=== PATIENT | female | born 1960 | race Caucasian/White ===

== ENCOUNTER 2020-06-23 15:30 | Outpatient (RCR) | payer OTHER, SELFPAY ==
--- NOTE | 2020-04-11 15:35 | PTOPEVAL ---
PHYSICAL THERAPY EVALUATION AND PLAN OF TREATMENT 04-11-2020 Thank you for referring Becky King to [facility].? She is scheduled to be seen for therapy? 1-2 x/week for 4 weeks. Please review, sign, date and return this plan of care OSMANY. I agree with and certify that the following plan of care is medically necessary. Referring Physician Date Attending Provider: Dr. Jim Jackson Ordering provider: RICHIE Blackman PT Outpatient Evaluation Document 04/11/20 14:32 THERESA (Rec: 04/11/20 15:17 THERESA [id number]) Therapy Assessment Status Assessment Status Assessment Status Evaluation Outpatient Past Medical History Past Medical History Source of Past Medical History Patient Neurological History Hx Migraine Yes: headaches every other day - all day to 1 hour duration Cardiovascular History Hx Hypertension Yes: med control Respiratory History Hx Sleep Apnea Yes: CPAP machine Gastrointestinal History Hx Gastroesophageal Reflux Disease Yes: meds Hx Other Gastrointestinal Disorders Yes: constipation- take meds Genitourinary History Hx Genitourinary Disorders No Significant History Musculoskeletal History Hx Arthritis Yes: B hands, R knee pain; Hx Orthopedic Surgery Yes: L femur ~ 2 yr ago- ORIF; Hx Other Musculoskeletal Disorders Yes: R wrist fracture- casted; Endocrine History Hx Diabetes Yes: working on control-- working with dr on meds HEENT History Hx Other HEENT Disorders Yes: hearing problems- ears hurt; B hearing aides Psychosocial History Hx Other Psychiatric Disorders Yes: have alot of mental health issues & stress Evaluation Information Problem Diagnosis L trochanteric bursitis Onset March 05, 2020 Subjective Information in March, fell down the Query Text:As Reported By Patient/ stairs, into her home, hand Family rail is broken-landed on L buttock; went to urgent care after fall; saw ortho- was told lots of arthritis, hip will always give you troubles ; it has gotten worse; have been inactive due to pandemic and are weaker; have not been doing exercises for leg/hip; Previous Treatments Previous Treatments For This Problem had PT after L hip ORIF; not had any recent therapy Prior Level of Function Activity Level (Last 3 Months) Occupation not working--disabled Activity of Daily Living Ability Independent Indoor/Home Mobility Independent Community Mobilit
--- NOTE | 2020-05-08 15:16 | PTOPEVAL ---
PHYSICAL THERAPY RE-EVALUATION AND UPDATED PLAN OF CARE 05-08-2020 Refer to the clinical summary below for her status compared to the initial evaluation. She is scheduled to continue PT 2x/week for 3 weeks. Thank you for referring Becky King to [facility].? Please review, sign, date and return this updated plan of care [facility]. I agree with and certify that the following plan of care is medically necessary. Referring Physician Date Attending Provider: Dr. Jim Jackson ordering provider: RICHIE Blackman *PT Outpatient Re-Evaluation Document 05/08/20 14:32 THERESA (Rec: 05/08/20 15:08 THERESA [id number]) Subjective Information Becky reports: at home, fell Query Text:As Reported By Patient/ when screen door hit her ankle Family - hit her head and cut leg open; and twisted her hip and ankle-- more pain in hip; having a bad day- too much going on today, am off kilter today; problems on stairs; when shopping use the motorized cart to go through store; compared to the start of PT feels like doing better- pain is less and want to continue therapy ; not sure when see dr again; WOMAC self assessment score is 71% limitation in activity; Pain Assessment Timing of Pain Assessment Timing of Pain Assessment Assessment Pain Scale Pain Scale Used Numeric (1 - 10) Self Report Pain Assessment Left Hip(s) Reported Pain Level 7 Pain Description Aching,Dull,Sharp Pain Frequency Chronic,Continuous Other Pain Description someone hit her in hip; Lowest Pain Intensity 4 Greatest Pain Intensity 9 Pain Aggravating Factors Exercise/Activity,Stair Climbing,Walking,Weight Bearing/Standing Other Pain Aggravating Factors getting on/off floor Pain Score Pain Score 7: Self Report Interventions Used Interventions Used By Clinicians Education,Exercise Pain Relief Interventions Used By Heat,Inactivity/Rest, Patient Medication,Sitting Other Alleviating Interventions taking ibuprofen- not really help; moving hip; heat; standing- incr WB on R Lower Extremity Range of Motion General Lower Extremity Range of Motion Gross Lower Extremity Range of Motion supine: L hip flexion 90'; ER Comments 15'; pain with both motions Lower Extremity Muscle Strength Testing
--- NOTE | 2020-05-26 16:09 | PTOPEVAL ---
PHYSICAL THERAPY RE-EVALUATION AND UPDATED PLAN OF CARE 05-26-20 Refer to the clinical summary below for her status, compared to the last reevaluation. Thank you for referring Becky King to [facility].? She is scheduled to be seen for therapy? 1 x/week for 4 weeks. Please review, sign, date and return this updated plan of care OSMANY. I agree with and certify that the following plan of care is medically necessary. Referring Physician Date Attending Provider: Dr. Jim Jackson ordering provider: RICHIE Blackman Document 05/26/20 15:25 THERESA (Rec: 05/26/20 16:09 THERESA [id number]) Assessment Status Reevaluation Subjective Information Becky reports: talked with dr Iraheta Text:As Reported By Patient/ today on phone, to return Family there in few weeks; been doing leg exercises; using cane for walking, in home do not use it; have not had any falls; wants to continue PT, feels like it is helping and she is doing better; Pain Assessment Timing of Pain Assessment Timing of Pain Assessment Assessment Pain Scale Pain Scale Used Numeric (1 - 10) Self Report Pain Assessment Left Hip(s) Reported Pain Level 5 Pain Description Aching,Dull,Sharp,Tender on Palpation Pain Frequency Chronic,Continuous Lowest Pain Intensity 4 Greatest Pain Intensity 7 Other Pain Aggravating Factors crawl on floor to do ermias; weather; walking, stairs Pain Behaviors Anxious,Grimacing,Guarding Pain Score Pain Score 5: Self Report Additional Pain Score Comments self assessment with WOMAC 63 % limitation Interventions Used Interventions Used By Clinicians Education,Exercise Pain Relief Interventions Used By Medication Patient Other Alleviating Interventions ibuprofen, move leg; Lower Extremity Range of Motion General Lower Extremity Range of Motion Gross Lower Extremity Range of Motion supine: L hip flexion 90', ER Comments 20'-both pain increase Lower Extremity Muscle Strength Testing General Lower Extremity Strength Gross Lower Extremity Strength functional strength: single leg standing R 4/L 3 sec- unstable standing L with 1 UE hold: hip abduction x 15 reps; knee flexion x 15 reps; supine: L SLR x 15 reps; hip abduction x 15 reps; Posture Posture Standing Position Posture Evaluation View Posterior Head/C-Spine Posture Forward Head Thora
--- NOTE | 2020-06-23 15:54 | PTOPEVAL ---
PHYSICAL THERAPY DISCHARGE 06-23-20 Refer to the clinical summary below for her status today, compared to the last reevaluation report. The goals were partially achieved. Discharge PT services, with Becky to continue her home exercise program. Thank you for referring Becky King to [facility].? Please review, sign, date and return this discharge OSMANY. I agree with and certify that the following plan of care is medically necessary. Referring Physician Date Attending Provider: Dr. Jim Jackson Referring Provider: RICHIE Blackman Document 06/23/20 15:15 THERESA (Rec: 06/23/20 15:54 THERESA [id number]) Assessment Status Discharge Subjective Information Becky reports: fell on the Query Text:As Reported By Patient/ ice/snow, landed on back/butt; Family hip is better, have been doing exercises at home as can ; not going to [place] anymore , next week am going to see the dr at [facility], that did the hip surgery; feels like need PT to be able to do exercises; Discussed with her to continue exercises at home- states cannot do the exercises on her bed at home, due to it is not supportive; problems on stairs, problems getting up and down off floor; not able to do her usual dancing and activities due to COVID restrictions, need to come here for equipment and exercises; Pain Assessment Timing of Pain Assessment Timing of Pain Assessment Assessment Pain Scale Pain Scale Used Numeric (1 - 10) Self Report Pain Assessment Left Hip(s) Reported Pain Level 5 Pain Description Dull,Sharp,Stabbing Pain Frequency Chronic,Continuous Other Pain Description lateral hip and thigh Lowest Pain Intensity 3 Greatest Pain Intensity 7 Pain Aggravating Factors Stair Climbing,Walking Pain Behaviors Anxious,Grimacing,Guarding Pain Score Pain Score 5: Self Report Additional Pain Score Comments WOMAC self assessment functional score 48% limitation in activity level Interventions Used Interventions Used By Clinicians Exercise Pain Relief Interventions Used By Heat,Inactivity/Rest, Patient Medication Other Alleviating Interventions take
== END 2020-06-26 08:05 | disposition home or self-care (01) ==
LOC: ANHPT 15:30
DX: M70.62 Trochanteric bursitis, left hip (principal)
CPT/HCPCS: 97035; 97110; 97161

== ENCOUNTER 2020-09-15 15:00 | Outpatient (RCR) | payer OTHER, SELFPAY ==
--- NOTE | 2020-07-20 15:09 | OTOPEVAL ---
OCCUPATIONAL THERAPY INITIAL EVALUATION Thank you for referring Becky King to [facility].? The patient is scheduled to be seen for therapy? 1-2x/week for 4 weeks. Would prefer 2x/week for optimal treatment, however patient's schedule is limited and may only be seen 1x/week. Please review, sign, date and return this plan of care OSMANY. I agree with and certify that the following plan of care is medically necessary. Referring Physician Date Referring Provider: Maxx Mckeon MD *OT Outpatient Evaluation Therapy Assessment Status Assessment Status Assessment Status Evaluation Outpatient Past Medical History Past Medical History Source of Past Medical History Recalled from Previous Visit, Confirmed with Patient/Family Neurological History Hx Cerebrovascular Accident (CVA) Yes Hx Migraine Yes: headaches every other day - all day to 1 hour duration Cardiovascular History Hx Hypercholesterolemia Yes Hx Hypertension Yes: med control Respiratory History Hx Sleep Apnea Yes: CPAP machine Gastrointestinal History Hx Gastroesophageal Reflux Disease Yes: meds Hx Other Gastrointestinal Disorders Yes: constipation- take meds Genitourinary History Hx Genitourinary Disorders No Significant History Musculoskeletal History Hx Arthritis Yes: B hands, R knee pain; Hx Orthopedic Surgery Yes: L femur ~ 2 yr ago- ORIF; Hx Other Musculoskeletal Disorders Yes: R wrist fracture- casted; Endocrine History Hx Diabetes Yes: working on control-- working with dr on meds HEENT History Hx Other HEENT Disorders Yes: hearing problems- ears hurt; B hearing aides Psychosocial History Hx Depression Yes Evaluation Information Problem Diagnosis Right 1st dorsal compartment stenosing tenosynovitis Subjective Information Patient reports having this Query Text:As Reported By Patient/ hand/wrist pain for the past Family few years , on and off . Patient states she has been having severe pain with ADLs, cooking, lifting, stirring, and carrying. She states the pain is so severe it stops her from being able to sleep. Diagnostic Tests X-Rays For This Problem No MRI For This Problem No Other Tests For This Problem No Previous Treatments Previous Treatments For This Problem N/A Prior Level of Function Activity Level (Last 3 Months) Hand Dominance Right Activity of Daily Living Ability Independent Indoor/Home Mobility Independent Community Mobility Independent Functional Cognition (Planning, Shopping In
--- NOTE | 2020-08-18 15:28 | OTOPEVAL ---
OCCUPATIONAL THERAPY RE-EVALUATION REPORT 08/18/20 Patient's re-evaluation today demonstrates reduction in pain in the 1st dorsal compartment. She continues to have moderate pain on a regular basis with everyday use and will benefit from continued sessions for use of modalities for pain and inflammation reduction, manual therapy, progression of exercises, and splint weaning schedule. Thank you for referring Becky King to [facility].? The patient is scheduled to be seen for therapy? 1x/week for 4 weeks. Please review, sign, date and return this plan of care OSMANY. I agree with and certify that the following plan of care is medically necessary. Referring Physician Date Referring Provider: Maxx Mckeon MD *OT Outpatient Evaluation Start: 07/20/20 14:04 Evaluation Information Problem Diagnosis Right 1st dorsal compartment stenosing tenosynovitis Additional Evaluation Detail Patient has participated in 6 OT sessions since 07/21/20. Patient has been wearing a forearm based thumb spica x3 weeks. Sessions have been focused on using modalities for inflammation reduction and manual therapy. Subjective Information Patient reports improved Query Text:As Reported By Patient/ ability to use the right hand Family with slightly less pain than she was having a month ago. She does report that her hand/ wrist pain no longer stop her from being able to sleep. Her pain with using the right hand when lifting and carrying has improved from severe to moderate Pain Assessment Timing of Pain Assessment Timing of Pain Assessment Pre-Treatment Pain Scale Pain Scale Used Numeric (1 - 10) Self Report Pain Assessment Right Wrist(s) Reported Pain Level 6 Pain Description Aching Lowest Pain Intensity 3 Greatest Pain Intensity 8 Pain Score Pain Score 6: Self Report Additional Pain Score Comments Patient reports no instances of her pain getting to 10/10 like it was on the initial evaluation. Interventions Used Interventions Used By Clinicians Education,Heat Upper Extremity Range of Motion Wrist Range of Motion Right Wrist Flexion - Active 30 Wrist Extension - Active 50 Wrist Radial Deviation - Active 20 Wrist Ulnar Deviation - Active 15 Wrist Range of Motion Comments Flexion improved from 25* Exten
--- NOTE | 2020-09-15 15:40 | OTOPEVAL ---
OCCUPATIONAL THERAPY RE-EVALUATION AND D/C NOTE 09/15/20 Patient presents for 2nd OT re-evaluation since beginning OT 8 weeks ago. At this time, she reports that her her pain has decreased from severe to mild and she is now able to complete ROM without increased pain. She also had a negative Abigail's test today. At this time she is independent with ROM HEP and understands to return to splinting/resting and icing if the pain returns in the future. No further skilled OT indicated at this time. Thank you for referring Becky King to [facility]. Please review, sign, date and return this D/C Note OSMANY. I agree with and certify that the following plan of care is medically necessary. Referring Physician Date Referring Provider: Maxx Mckeon MD *OT Outpatient Re-Evaluation Re-Evaluation Information Problem Diagnosis Right 1st dorsal compartment stenosing tenosynovitis Additional Evaluation Detail Patient has participated in 9 OT sessions since 07/21/20. Patient has been wearing a forearm based thumb spica x6 weeks with questionable compliance outside of therapy. Sessions have been focused on using modalities for inflammation reduction and manual therapy. Subjective Information Patient reports improved Query Text:As Reported By Patient/ ability to use the right hand Family with less pain for ADLs, carrying, driving, and crafting. She does report that her hand/wrist pain no longer stop her from being able to sleep. Her pain with using the right hand when lifting and carrying has improved from moderate to mild . QuickDash score at eval: 62.5 QuickDash score today: 25.0 Pain Assessment Timing of Pain Assessment Timing of Pain Assessment Re-assessment Pain Scale Pain Scale Used Numeric (1 - 10) Self Report Pain Assessment Right Wrist(s) Reported Pain Level 3 Pain Description Aching Lowest Pain Intensity 2 Greatest Pain Intensity 6 Pain Score Pain Score 3: Self Report Interventions Used Interventions Used By Clinicians Education Upper Extremity Range of Motion Wrist Range of Motion Right Wrist Flexion - Active 30 Wrist Extension - Active 60 Wrist Radial Deviation - Active 20 Wrist Ulnar Deviation - Active 15 Wrist Range of Motion Comments Flexion improved from 25* Extensi
== END 2020-09-18 10:35 | disposition home or self-care (01) ==
LOC: ANHOT 15:00
PROVIDERS: Visit Provider Plastic Surgery
DX: M65.4 Radial styloid tenosynovitis [de Quervain] (principal)
CPT/HCPCS: 97035; 97110; 97140; 97165; L3808

== ENCOUNTER 2021-05-03 15:30 | Outpatient (RCR) | payer OTHER, SELFPAY ==
--- NOTE | 2021-02-12 15:34 | PTOPEVAL ---
PHYSICAL THERAPY EVALUATION AND PLAN OF CARE 02-12-21 Thank you for referring Becky King to [facility].? Becky is scheduled to be seen for therapy? 2 x/week for 4 weeks. Please review, sign, date and return this plan of care OSMANY. I agree with and certify that the following plan of care is medically necessary. Referring Physician Date Attending Provider: GEOVANNY JEFF *PT Outpatient Evaluation Start: 02/12/21 14:49 Assessment Status Evaluation Outpatient Past Medical History Past Medical History Source of Past Medical History Recalled from Previous Visit, Confirmed with Patient/Family Neurological History Hx Cerebrovascular Accident (CVA) Yes Hx Migraine Yes: headaches every other day - all day to 1 hour duration Cardiovascular History Hx Hypercholesterolemia Yes Hx Hypertension Yes: med control Respiratory History Hx Sleep Apnea Yes: CPAP machine Gastrointestinal History Hx Gastroesophageal Reflux Disease Yes: meds Hx Other Gastrointestinal Disorders Yes: constipation- take meds Genitourinary History Hx Genitourinary Disorders No Significant History Musculoskeletal History Hx Arthritis Yes: B hands, R knee pain; Hx Orthopedic Surgery Yes: L femur ~ 2 yr ago- ORIF; Hx Other Musculoskeletal Disorders Yes: R wrist fracture- immobilized/non surgical Endocrine History Hx Diabetes Yes: on insulin; HEENT History Hx Other HEENT Disorders Yes: hearing problems- ears hurt; 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 Psychosocial History Hx Depression Yes Evaluation Information Problem Diagnosis L hip pain; trochanteric bursitis Onset December 2020 Subjective Information dance season ended and not as Query Text:As Reported By Patient/ active; not doing any Family exercises at home for her leg/ hip; having so many problems, not able to do exercises; Prior Level of Function Activity Level (Last 3 Months) Activity of Daily Living Ability Independent Indoor/Home Mobility Independent Community Mobility Independent Stairs Ability Independent Functional Cognition (Planning, Shopping Independent , Taking Medications) Cooking Yes Cleaning Yes Laundry Yes Shopping Yes Driving Yes Home Setting Home Type House Living Situation Alone Mobility Assistive Devices (Used Last 3 None,Cane
--- NOTE | 2021-03-14 16:16 | PTOPEVAL ---
PHYSICAL THERAPY DISCHARGE 03-14-21 Refer to the clinical summary below for her status today, compared to the initial evaluation. Ms. King has made some improvements, but additional skilled therapy is not justified. Becky has been instructed on a home exercise program and is to continue with it. She reports she wants to continue therapy to return to dancing. Thank you for referring Becky King to [facility].? Please review, sign, date and return this Discharge report OSMANY. I agree with and certify that the following plan of care is medically necessary. Referring Physician Date Attending Provider: GEOVANNY JEFF Document 03/14/21 15:10 THERESA (Rec: 03/14/21 16:14 THERESA [id number]) Assessment Status Discharge Subjective Information Becky reports: doing better Query Text:As Reported By Patient/ since coming for therapy- hip Family better, less pain, easier to walk; have had horrible night and did not sleep last night; doing exercises at home; want to dance again; wants to continue with therapy, hope I improved enough to keep coming for therapy; Pain Assessment Timing of Pain Assessment Timing of Pain Assessment Assessment Pain Scale Pain Scale Used Numeric (1 - 10) Self Report Pain Assessment Left Hip(s) Reported Pain Level 6 Pain Description Aching,Dull,Sharp,Soreness, Tender on Palpation,Tightness Pain Frequency Chronic,Continuous Other Pain Description stiff--point lateral hip and thigh Lowest Pain Intensity 5 Greatest Pain Intensity 7 Pain Aggravating Factors Sitting,Walking,Weight Bearing /Standing Other Pain Aggravating Factors sit tolerance reported 15 min; bending down to floor; Pain Behaviors Anxious,Grimacing,Guarding Pain Score Pain Score 6: Self Report Additional Pain Score Comments knee was hurting, is doing OK today; WOMAC- self assessment functional score 71% limitation in activity Interventions Used Interventions Used By Clinicians Education,Exercise Pain Relief Interventions Used By Inactivity/Rest,Medication, Patient Sitting Other Alleviating Interventions ibuprofen Lower Extremity Range of Motion General Lower Extremity Range of Motion Gross Lower Extremity Range of Motion side lying L hip extension to Comments (-5') and knee flexion to 90' Lower Extremity Muscle Strength Testing General Lower Extre
--- NOTE | 2021-03-16 14:57 | OTOPEVAL ---
OCCUPATIONAL THERAPY INITIAL EVALUATION REPORT 03/16/21 Thank you for referring Becky King to [facility].? The patient is scheduled to be seen for therapy? 1-2x/week for 5 weeks. Please review, sign, date and return this plan of care OSMANY. I agree with and certify that the following plan of care is medically necessary. Referring Physician Date Referring Provider: Dr. Ryan Mckeon *OT Outpatient Evaluation Start: 03/16/21 13:46 Therapy Assessment Status Assessment Status Assessment Status Evaluation Outpatient Past Medical History Past Medical History Source of Past Medical History Recalled from Previous Visit, Confirmed with Patient/Family Neurological History Hx Cerebrovascular Accident (CVA) Yes Hx Migraine Yes: headaches every other day - all day to 1 hour duration Cardiovascular History Hx Hypercholesterolemia Yes Hx Hypertension Yes: med control Respiratory History Hx Sleep Apnea Yes: CPAP machine Gastrointestinal History Hx Gastroesophageal Reflux Disease Yes: meds Hx Other Gastrointestinal Disorders Yes: constipation- take meds Genitourinary History Hx Genitourinary Disorders No Significant History Musculoskeletal History Hx Arthritis Yes: B hands, R knee pain; Hx Orthopedic Surgery Yes: L femur ~ 2 yr ago- ORIF; Hx Other Musculoskeletal Disorders Yes: R wrist fracture- immobilized/non surgical Endocrine History Hx Diabetes Yes: on insulin; HEENT History Hx Other HEENT Disorders Yes: hearing problems- ears hurt; 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 She Family states that she cannot use her right hand to start her car, open a door, use a screwdriver , or open a jar or a soda bottle. She takes ibuprofen for the pain. Prior Level of Function Activity Level (Last 3 Months) Hand Dominance Right Activity of Daily Living Ability Independent Driving Yes Pain Assessment Timing of Pain Assessment Timing of Pain Assessment Assessment Pain Scale Pain Scale Used Numeric (1 - 10) Self Report Pain Assessment Right Hand(s) Reported Pain Level 9 Pain Description Aching,Burning,Sharp Pain Frequency Continuous Lowest Pain Intensity 3
--- NOTE | 2021-03-23 14:05 | PCOTNOTE ---
Patient did not show up for scheduled appointment this date. Called patient who states she forgot about her appointment today.
--- NOTE | 2021-04-20 15:39 | OTOPEVAL ---
OCCUPATIONAL THERAPY RE-EVALUATION REPORT 04/20/21 Becky has been seen for 6 outpatient treatment sessions for right 1st dorsal compartment syndrome as well as the recent development of a trigger thumb. A forearm based thumb spica with the thumb IP included was fabricated ~3.5 weeks ago. Questionable compliance with the splint, however she does have the splint on when she arrives each therapy session. Improvements have been noted since the start of care: less pain with wrist active ROM, serial opposition, and thumb flexion. She unfortunately continues to have signs and symptoms of a trigger thumb, which is the biggest limitation at this time. She may benefit from an injection at her next visit with . Continued skilled OT indicated for continued use of modalities for inflammation reduction, HEP progression, ROM, manual therapy, and progression to strengthening as pain allows to facilitate optimal functional use of the right hand. Thank you for referring Becky King to [facility].? The patient is scheduled to be seen for therapy? 1x/week for 5 weeks. Please review, sign, date and return this plan of care OSMANY. I agree with and certify that the following plan of care is medically necessary. Referring Physician Date Referring Provider: Dr. Ryan Mckeon *OT Outpatient Evaluation Start: 03/16/21 13:46 Evaluation Information Problem Diagnosis Right 1st dorsal compartment syndrome Subjective Information Patient reports reduction in Query Text:As Reported By Patient/ pain in the right hand. She Family states she can now use the right hand with less pain to start her car, opening a door, and open a jar or soda bottle . She states, it's getting better, but not there yet . Pain Assessment Timing of Pain Assessment Timing of Pain Assessment Assessment Pain Scale Pain Scale Used Numeric (1 - 10) Self Report Pain Assessment Right Hand(s) Reported Pain Level 4 Pain Description Aching,Soreness Pain Score Pain Score 4: Self Report Interventions Used Interventions Used By Clinicians Exercise,Rest Upper Extremity Range of Motion Wrist Range of Motion Right Wrist Flexion - Active 30 Wrist Extension - Active 55 Wrist Radial Deviation - Active 15 Wrist Ulnar Deviation - Active 25 Wrist Range of Motion Comments a little bit of pain with wrist ROM Flexion improved from 15* Extension improved from 20* RD improved from 5* UD improved from 10* Thumb Range of Motion Right Thumb Range of Motion Comments She is now able to complete serial opposition. At the start of care, she was unable to touch the index finger
--- NOTE | 2021-05-14 08:39 | PCOTNOTE ---
This treatment is being continued on visit number [id number]. Please see documentation on both accounts to view progress. Completed interventions, outcomes, and problems have been marked as Inactive to facilitate the copying of the Care plan routine for recurring accounts.
== END 2021-05-10 11:38 | disposition home or self-care (01) ==
LOC: ANHOT 15:30
PROVIDERS: Visit Provider Physician Assistant
DX: M70.62 Trochanteric bursitis, left hip (principal); M25.552 Pain in left hip
CPT/HCPCS: 97035; 97110; 97140; 97161; 97165; L3806; L3933

== ENCOUNTER 2021-07-19 15:30 | Outpatient (RCR) | payer OTHER, SELFPAY ==
--- NOTE | 2021-05-14 08:38 | PCOTNOTE ---
The treatment documented on this account is a continuation of the treatment documented on visit number [id number]. Please see documentation on both accounts to view progress. The Plan of Care has been transitioned and updated within the new V#. I have addressed and agree with the discipline specific Problems, Interventions, and Goals for the current certification period. Completed interventions, outcomes, and problems have been marked as Inactive to facilitate the copying of the Care plan routine for recurring accounts.
--- NOTE | 2021-05-22 15:51 | OTOPEVAL ---
OCCUPATIONAL THERAPY RE-EVALUATION AND POC UPDATE 05/22/21 Today was Becky's 10th outpatient OT session for right 1st dorsal compartment syndrome, right trigger thumb, and now being treated for left trigger finger of the ring finger. Splinting has been our main treatment to immobilize and rest these structures. She continues to make progress with reduced pain and improved functional use, however she continues to have mild pain with inconsistent triggering of the thumb. Abigail's on the right is now negative. Today a splint was fabricated for the left ring finger to reduce triggering and reduce pain. She is unable to make a complete fist with the left hand at this time. Continued skilled OT indicated for continued use of modalities for inflammation reduction, HEP progression, ROM, manual therapy, and progression to strengthening as pain allows to facilitate optimal functional use of bilateral hands. Thank you for referring Becky King to [facility].? The patient is scheduled to be seen for continued occupational therapy? 1x/week for 4 weeks. Please review, sign, date and return this plan of care OSMANY. I agree with and certify that the following plan of care is medically necessary. Referring Physician Date Referring Provider: Dr. Ryan Mckeon *OT Outpatient Evaluation Start: 05/18/21 14:13 Evaluation Information Problem Diagnosis Right 1st dorsal compartment syndrome Onset December 2020 Additional Evaluation Detail Patient is also being treated for right trigger thumb. She began having a trigger finger in the left ring finger and has new orders to eval and treat that today. Subjective Information Patient reports reduced pain Query Text:As Reported By Patient/ in the right hand. She states Family her thumb intermittently gets stuck noting times of no triggering. She reports improved functional use of the right hand to start her car, open doors, and carry objects. She is writing without difficulty now. Inconsistent compliance with splinting. Pain Assessment Timing of Pain Assessment Timing of Pain Assessment Re-assessment Pain Scale Pain Scale Used Numeric (1 - 10) Self Report Pain Assessment Left Finger, Ring Reported Pain Level 8 Pain Description Aching,Sharp Right Thumb(s) Reported Pain Level 1 Pain Description Soreness Right Wrist(s) Reported Pain Level 2 Pain Description Aching Pain Score Pain Score 2,1,8: Self Report Interventions Used Interventions Used By Clinicians Splinting Upper Extremity Range of Motion Wrist
--- NOTE | 2021-06-20 15:49 | OTOPEVAL ---
OCCUPATIONAL THERAPY RE-EVALUATION REPORT 06/20/21 Today was Becky's 14th outpatient OT session for right 1st dorsal compartment syndrome, right trigger thumb, and left trigger finger of the ring finger. Splinting has been our main treatment to immobilize and rest these structures. She continues to make progress with reduced pain and improved functional use, however she continues to have mild pain with inconsistent triggering of the thumb. Her fist on the left hand has improved from 50% to 75%. Continued skilled OT indicated for continued use of modalities for inflammation reduction, HEP progression, ROM, manual therapy, and progression to strengthening as pain allows to facilitate optimal functional use of bilateral hands. Rehab potential on the right trigger thumb is guarded. The thumb has been immobilized x3 months and she continues to have a trigger thumb. Will continue to monitor this over the next 4 weeks. Thank you for referring Becky King to [facility].? The patient is scheduled to be seen for therapy? 1x/week for 4 weeks. Please review, sign, date and return this plan of care OSMANY. I agree with and certify that the following plan of care is medically necessary. Referring Physician Date Referring Provider: Dr. Ryan Mckeon *OT Outpatient Evaluation Start: 05/18/21 14:13 Evaluation Information Problem Diagnosis Right 1st dorsal compartment syndrome Onset December 2020 Additional Evaluation Detail Patient is also being treated for right trigger thumb and left ring trigger finger. Subjective Information Patient reports reduced pain Query Text:As Reported By Patient/ in the right hand. She states Family her thumb continues to pop , but no longer has the associated pain with this. She reports improved functional use of the right hand to start her car, open doors, and carry objects. She is writing without difficulty now. Pain Assessment Timing of Pain Assessment Timing of Pain Assessment Re-assessment Pain Scale Pain Scale Used Arabella (FACES) Howard-Odom Howard-Odom Pain Scale Mild Pain Pain Score Pain Score Mild Pain: Howard Odom Additional Pain Score Comments Patient reports always having pain in the left hand. She states it's at least always mild, but pain increases when making a fist. She does report that overall her hand is feeling better since we started therapy on it last month. Interventions Used Interventions Used By Clinicians Exercise,Manual Therapy Techniques,Ultrasound Up
--- NOTE | 2021-07-19 16:00 | OTOPEVAL ---
OCCUPATIONAL THERAPY RE-EVALUATION AND DISCHARGE SUMMARY 07/19/21 Today was Becky's 4th OT re-evaluation since beginning hand therapy 03/16/22. Since March she has been treated for right 1st dorsal compartment tenosynovitis and right trigger thumb. The right 1st dorsal compartment tenosynovitis has resolved. The right trigger thumb has plateaued with therapy. We have tried 3 different splints and weekly treatments for the thumb without success. She unfortunately is non-compliant with splinting and her HEP. The left hand began to have a trigger finger in May and this has resolved. She has some residual stiffness for which she has a HEP for. Recommended that she continue to work on the ROM and strength of her left hand and follow up with MD for right trigger thumb management as therapeutic intervention has reached a progress plateau. Discharging today with HEP. Thank you for referring Becky King to [facility].? Please review, sign, date and return this D/C Note OSMANY. I agree with and certify that the following plan of care is medically necessary. Referring Physician Date Referring Provider: Dr. Ryan Mckeon *OT Outpatient Re-Evaluation Start: 05/18/21 14:13 Additional Evaluation Detail Multiple dx: - Right 1st dorsal compartment syndrome, resolved - Right trigger thumb - Left ring trigger finger Subjective Information Patient reports her thumb Query Text:As Reported By Patient/ continues to pop . She had Family another injection in the thumb on 07/17/21. She states the shot had no effect on the thumb and that she is strongly considering surgery. As far as the left hand goes, she is now able to make a fist on the left. Pain Assessment Timing of Pain Assessment Timing of Pain Assessment Re-assessment Pain Scale Pain Scale Used HowardJavonOdom (FACES) Howard-Odom Howard-Odom Pain Scale Moderate Pain Pain Score Pain Score Moderate Pain: Lee Odom Additional Pain Score Comments Patient reports severe pain in the right thumb and moderate pain in the left hand. She points to the base of the ring finger for the site of her pain. Interventions Used Interventions Used By Clinicians Exercise,Manual Therapy Techniques,Splinting Upper Extremity Range of Motion Finger Range of Motion Left Index Finger Tip to Base of Palm - 0 Active Middle Finger Tip to Base of Palm - 0 Active Ring Finger Tip to Base of Palm - Active 0 Finger Range of Motion Comments She is now able to make a full fist wit
== END 2021-08-01 10:14 | disposition home or self-care (01) ==
LOC: ANHOT 15:30
PROVIDERS: Visit Provider Physician Assistant
DX: M70.62 Trochanteric bursitis, left hip (principal); M25.552 Pain in left hip
CPT/HCPCS: 97035; 97110; 97140; 97760; 97763; L3933

== ENCOUNTER 2021-10-26 14:30 | Outpatient (RCR) | payer OTHER, SELFPAY ==
--- NOTE | 2021-08-03 16:33 | PTOPEVAL ---
Thank you for referring Becky King to [facility].? The patient is scheduled to be seen for therapy 2 x/week for 8 weeks. Please review, sign, date and return this plan of care OSMANY. I agree with and certify that the following plan of care is medically necessary. Referring Physician Date Attending Provider: RANDEE,GEOVANNY QUIROZ Diagnosis left hip trochanteric bursitis Onset 05/26 Additional Evaluation Detail s/p left femur fracture s/p ORIF- 2yrs ago PLOF: no pain with household mobility, otherwise she has pain in her left leg at baseline with mobility. She has 2 BRODY with railing. Subjective Information She fall down the steps in May Query Text:As Reported By Patient/ when she missed a step Family causing increased left leg pain. She reports limitations with all daily task of sitting, walking and standing. 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 She does not use the cane in the house, only with distance mobility. Does not perform any exercises. Pain Assessment Left Hip(s) Reported Pain Level 8 Pain Description Aching,Burning,Sharp Pain Frequency Continuous Lowest Pain Intensity 5 Greatest Pain Intensity 10 Pain Aggravating Factors ADL's,Bending,Inspiration, Prolonged Position,Sitting, Stair Climbing,Supine,Walking, Weight Bearing/Standing Pain Behaviors Anxious Lower Extremity Range of Motion General Lower Extremity Range of Motion Gross Lower Extremity Range of Motion passive left hip flex: 90 dg, Comments abd 10 dg- limited by pain left knee -10 to 60- limited by pain Lower Extremity Muscle Strength Testing General Lower Extremity Strength Reason Not Measured WNL/Right Hip Strength Left Hip Flexion Strength 3 Fair Hip Extension Strength 2 Poor Hip Abduction Strength 2- Poor - Hip Adduction Strength 2 Poor Hip Strength Comments unable to complete full bridge Knee Strength Left Knee Flexion Strength 3 Fair Knee Extension Strength 3 Fair Knee Strength Comments unable to teo resistance due to pain
--- NOTE | 2021-09-07 15:24 | PTOPEVAL ---
Physical Therapy Progress Note Thank you for referring Becky King to [facility].? She was referred to therapy due left trochanteric bursitis related to a fall on the step in May. She has attended 8 from 08/03/21 to 09/07/21. 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 She continues have increased pain with all activities. WOMAC:89.5% impaired at eval 62% impaired at update 5 rep sit<>Stand: 38 sec, 23 sec TU sec, 19 sec at update 2 MWT: 133 ft with cane at eval and 138 ft at update Assessment: Present with therapy with improved limitations related to her therapy DX. Her medical status requires enhanced monitoring beyond what would routinely be needed for physical therapy. She requires additional skilled therapy services to address her noted impairments, improve functional mobility, and provide a home program to improve restrictions. Without additional skilled therapy services her multiple areas of impairments will not improve and her function will remain limited. The patient is scheduled to be seen for therapy?1-2 x/week for 4 weeks. Please review, sign, date and return this plan of care OSMANY. I agree with and certify that the following plan of care is medically necessary. Referring Physician Date Attending Provider: RANDEE,GEOVANNY QUIROZ Diagnosis left hip trochanteric bursitis Onset 05/26 Additional Evaluation Detail s/p left femur fracture s/p ORIF- 2yrs ago PLOF: no pain with household mobility, otherwise she has pain in her left leg at baseline with mobility. She has 2 BRODY with railing. Subjective Information Denies any recent falls. She Query Text:As Reported By Patient/ had surgery on her right hand Family on Friday. She is limited with WB on right hand, but arrived using her cane in her right hand. Reports improved tolerance with all daily task of sitting ,walking and standing. 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 She is preforming her HEP daily Pain Assessment Lower Back Reported Pain Level 3 Lowest Pain Intensity 3 Greatest Pain Intensity 4 Left Hip(s) Reported Pain Level 5 Pain Description Aching,Burning,Sharp Lowest Pain Intensity 5 Greatest Pain Intensity 6 Lower Extremity Range of Motion Gross Lower Extremity Range of Motion passive left hip flex: 95 dg, Comments abd 15 dg: limited by pain left knee -5 to 118- limited by pain Lower Extremity Muscle Strength Test
--- NOTE | 2021-10-09 16:19 | PTOPEVAL ---
PHYSICAL THERAPY PROGRESS REPORT. Thank you for referring Becky King to [facility].? The patient is scheduled to be seen for follow up in 2 weeks. Please review, sign, date and return this plan of care OSMANY. I agree with and certify that the following plan of care is medically necessary. Referring Physician Date Attending Provider: RANDEE,GEOVANNY QUIROZ Evaluation Information Diagnosis left hip trochanteric bursitis Onset 05/26 Subjective Information Pt states she is doing better. Query Text:As Reported By Patient/ She states she stood up and Family danced during 90% of a concert yesterday. She states therapy is working well. She reports good compliance with her HEP but later states she never does her exercises at home, only when at doctors visits or at her concerts. She states she needs motivation to do her exercises at home. Pain Assessment Self Report Pain Assessment Lower Back Reported Pain Level 3 Left Hip(s) Reported Pain Level 3 Lower Extremity Range of Motion Gross Lower Extremity Range of Motion passive left hip flex: 120 deg Comments left knee -5 to 118 Lower Extremity Muscle Strength Testing Gross Lower Extremity Strength right LE 5/5 hip abd: 3+/5 Hip Strength Left Hip Flexion Strength 4+ Good + Hip Extension Strength 3+ Fair + Hip Abduction Strength 4- Good - Hip Adduction Strength 3+ Fair + Knee Strength Left Knee Flexion Strength 4+ Good + Knee Extension Strength 4+ Good + Ankle Strength Left Ankle Dorsiflexion Strength 4 Good Ankle Plantarflexion Strength 4 Good Balance Assessment Time Up Go (TUG) Timed Up and Go Test (TUG) (Seconds) 14 Assistive Devices Cane, Straight Comments initially: 19s, mild increased pain 10/09/21: 14s, no increases in pain 5 Time Sit to Stand Time in Seconds 20 5 Time Sit to Stand Comments Initially: 23s = WB on left LE Query Text:Normative Data: If Greater , min pain Than 15 Seconds, 74% Increase Risk for 10/09/21: 20s equal weight Recurrent Falls distribution Gait Assessment Gait Pattern Antalgic Gait,Shuffled Gait Gait Pattern Observed Decreased Stride Length - Left ,Decreased Stride Length - Right,No Heel Strike - Left,No Heel Strike - Right,Trunk Flexed 2 Minute Walk T
--- NOTE | 2021-10-26 15:04 | PTOPEVAL ---
PHYSICAL THERAPY PROGRESS REPORT AND DISCHARGE SUMMARY. Thank you for referring Becky King to [facility].? The patient is to be discharged from therapy services at this time. Please review, sign, date and return this plan of care OSMANY. I agree with and certify that the following plan of care is medically necessary. Referring Physician Date Attending Provider: RANDEE,GEOVANNY QUIROZ *PT Outpatient Evaluation Start: 08/03/21 Evaluation Information Diagnosis left hip trochanteric bursitis Onset 05/26 Subjective Information Pt reports she still has mild Query Text:As Reported By Patient/ hip and back pain. She reports Family she had a dance program last night and was able to complete all the dance. She states she still has to take some rest breaks but these are becoming less frequent as she builds her endurance and her strength Pain Assessment Self Report Pain Assessment Lower Back Reported Pain Level 4 Left Hip(s) Reported Pain Level 4 Lower Extremity Range of Motion General Lower Extremity Range of Motion WFL/Left,WFL/Right Lower Extremity Muscle Strength Testing Gross Lower Extremity Strength right LE 5/5 hip abd: 4-/5 Hip Strength Left Hip Flexion Strength 4+ Good + Hip Extension Strength 3+ Fair + Hip Abduction Strength 4- Good - Hip Adduction Strength 4- Good - Knee Strength Left Knee Flexion Strength 4+ Good + Knee Extension Strength 4+ Good + Ankle Strength Left Ankle Dorsiflexion Strength 4+ Good + Ankle Plantarflexion Strength 4+ Good + Posture Head/C-Spine Posture Forward Head Thoracic Spine Posture Increased Kyphosis Lumbar Spine Posture Flexed Shoulder Posture (L) Rounded,(R) Rounded Scapula Posture (L) Protracted,(R) Protracted Weight Distribution Weight Shifted Right,Decreased Wt.Bear on (L) Hip Posture (L) Externally Rotated Knee Posture (L) Excess Flexion Balance Assessment Assistive Devices Cane, Straight Comments initially: 19s, mild increased pain 10/09/21: 14s, no increases in pain 10/26/21: 17s 5 Time Sit to Stand 5 Time Sit to Stand Comments Initially: 23s = WB on left LE Query Text:Normative Data: If Greater , min pain Than 15 Seconds, 74% Increase Risk for 10/09/21: 30s equal weight Recurrent Falls distribution 10/26/21: 23s, equal weight
== END 2021-10-26 16:00 | disposition home or self-care (01) ==
LOC: ANHPT 14:30
PROVIDERS: Visit Provider Physician Assistant
DX: M70.62 Trochanteric bursitis, left hip (principal)
CPT/HCPCS: 97110; 97112; 97162; 97530

== ENCOUNTER 2022-04-10 14:00 | Outpatient (RCR) | payer OTHER, SELFPAY ==
--- NOTE | 2022-01-30 15:22 | OTOPEVAL1 ---
Assessment and note entered by Og Pearce, OTR/Anibal, CHT Evaluation Information Assessment Status Evaluation Diagnosis Stenosing tenosynovitis left 3rd and 4th digits @ A1 karolyn Onset Unknown Subjective Information Patient reports difficulties opening and closing her left hand due to pain, soreness, and stiffness . She reports difficulties with holding the steering wheel, opening doors, and gripping objects. She reports it's the worst when she wakes up in the morning. She reports sometimes the fingers get stuck into flexion. Reported Pain Level Pain Score Severe Pain: Howard Odom Additional Pain Score Comments Pt unable to use numeric/10 scale. With active ROM she reports severe pain. At rest she reports mild pain. Assessment OT Clinical Summary Becky is a 61 year-old, right handed female who is referred to outpatient OT with dx of stenosing tenosynovitis of the left hand, digits 3 and 4. She presents with stiffness and pain which is restricting her ability to make a fist that limits functional left hand use for ADL tasks. She will benefit from skilled OT for HEP instruction and progression, modalities, functional therapeutic exercise, progression to strengthening, and manual therapy to facilitate optimal functional use of the left hand. Plan of Care Interventions Therapeutic Exercise,Manual Therapy,Therapeutic Activities,Hot Pack/Cold Pack,Check Out for Orthotic/Pr,Ultrasound,Paraffin,Other OT Services Indicated Yes Treatment Frequency and Patient unable to attend therapy until the week of Duration Feb 18. Will begin 1x/week for 4 weeks beginning that week with the reassessment scheduled for Mar 12. These treatments will address the objective and functional deficits as defined above. The patient will be advanced safely and appropriately in order for the patient to progress towards his/her prior level of function. Additional exercises will be introduced and as well as a comprehensive home exercise program upon discharge, if needed, ?to ensure carryover of functional gains achieved in the clinic. This treatment plan has been reviewed and agreement upon by the patient.
--- NOTE | 2022-03-12 14:46 | OTOPREEVAL ---
Assessment and note entered by Hilda Bowie OTR/L Evaluation Information Assessment Status Re-evaluation Diagnosis Stenosing tenosynovitis left 3rd and 4th digits @ A1 karolyn Onset Unknown Subjective Information Patient reports there is still pain and soreness on L hand with limitations with opening and closing hand. Patient reports fingers still become stuck into a flexed position. Patient reports is becoming easier to open items, hold steering wheel, and additionally reports things at home have not been well which has resulted in impacting participation with completing HEP. Reported Pain Level Pain Score Moderate Pain: Howard Ilene Additional Pain Score Comments L hand digits 3-4 Assessment OT Clinical Summary Becky is a 61 year-old, right handed female who is referred to outpatient OT with a diagnosis of stenosing tenosynovitis of the left hand, digits 3 and 4. She presents today for a re-evaluation. Patient demonstrated improved active ROM of L digits 3 and 4 at the MCP joint and PIP joints. 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 Patient will benefit from continued from skilled OT for HEP progression, use of modalities, functional therapeutic exercise, progression to strengthening , and manual therapy to facilitate optimal functional use of the left hand. Plan of Care Interventions Therapeutic Exercise,Manual Therapy,Therapeutic Activities,Hot Pack/Cold Pack,Check Out for Orthotic/Pr,Ultrasound,Paraffin,Other OT Services Indicated Yes These treatments will address the objective and functional deficits as defined above. The patient will be advanced safely and appropriately in order for the patient to progress towards his/her prior level of function. Additional exercises will be introduced and as well as a comprehensive home exercise program upon discharge, if needed, ?to ensure carryover of functional gains achieved in the clinic. This treatment plan has been reviewed and agreement upon by the patient.
--- NOTE | 2022-04-10 14:58 | OTOPPROG ---
Assessment and note entered by Hilda Bowie OTR/L Evaluation Information Assessment Status Progress Diagnosis Stenosing tenosynovitis left 3rd and 4th digits @ A1 karolyn Onset Unknown Subjective Information Patient reports there is still pain in hand and it is still popping regularly. Patient reports has completed HEP at least once a day. Patient reports it is still easier to complete tasks such as typing, opening door knobs. Assessment OT Clinical Summary Becky is a 61 year-old, right handed female who is referred to outpatient OT with a diagnosis of stenosing tenosynovitis of the left hand, digits 3 and 4. She presents today for a re-evaluation. Patient reports continues to feel improvements with gripping/grasping tasks but is still experiencing popping of digits 3-4. Patient demonstrates improvement with ROM of reaching finger tips to palm, increased fine motor coordination measured through 9-hole peg test. Patient reports wants to try therapy for several more sessions prior to MD appointment, she reports if does not improve in the next few treatments is agreeable to discharge. Patient will benefit from continued from skilled OT for HEP progression, use of modalities, functional therapeutic exercise , progression to strengthening, and manual therapy to facilitate optimal functional use of the L hand. Plan of Care Interventions Therapeutic Exercise,Manual Therapy,Therapeutic Activities,Hot Pack/Cold Pack,Check Out for Orthotic/Pr,Ultrasound,Paraffin,Other OT Services Indicated Yes Treatment Frequency and Patient will complete x2 more treatments, if no Duration improvements will discharge from OT with independence with HEP. These treatments will address the objective and functional deficits as defined above. The patient will be advanced safely and appropriately in order for the patient to progress towards his/her prior level of function. Additional exercises will be introduced and as well as a comprehensive home exercise program upon discharge, if needed, ?to ensure carryover of functional gains achieved in the clinic. This treatment plan has been reviewed and agreement upon by the patient.
--- NOTE | 2022-05-01 13:38 | PCOTNOTE ---
This treatment is being continued on visit number [id number]. Please see documentation on both accounts to view progress. Completed interventions, outcomes, and problems have been marked as Inactive to facilitate the copying of the Care plan routine for recurring accounts.
== END 2022-04-30 23:59 | disposition home or self-care (01) ==
LOC: ANHOT 14:00
PROVIDERS: Visit Provider Plastic Surgery
DX: M65.842 Other synovitis and tenosynovitis, left hand (principal)
CPT/HCPCS: 97035; 97110; 97140; 97165

== ENCOUNTER 2022-06-24 15:00 | Outpatient (RCR) | payer OTHER, SELFPAY ==
--- NOTE | 2022-05-01 13:39 | PCOTNOTE ---
This treatment is being continued from previous visit number [id number]. Please see documentation on both accounts to view progress. Completed interventions, outcomes, and problems have been marked as Inactive to facilitate the copying of the Care plan routine for recurring accounts.
--- NOTE | 2022-05-08 15:03 | OTOPEVAL1 ---
Assessment and note entered by Og Pearce, OTR/Anibal, CHT Evaluation Information Assessment Status Progress Diagnosis Stenosing tenosynovitis left 3rd and 4th digits @ A1 karolyn Onset Unknown Subjective Information Patient reports she has been experiencing less popping in the fingers. Patient reports she tries to complete the HEP at least once a day. Patient reports it is still easier to complete tasks such as gross gripping with less pain. She was able to participate in 30 minutes of hand exercise today with a reduction in pain following the session. At the end of the session she was able to make a full fist, touching all her fingertips to her palm on the left hand. Reported Pain Level Pain Score Moderate Pain: Howard Odom Additional Pain Score Comments Moderate pain in left digits III and IV. Assessment OT Clinical Summary Becky is a 61 year-old, right handed female who is referred to outpatient OT with a diagnosis of stenosing tenosynovitis of the left hand, digits 3 and 4. She presents today for a re-evaluation. Patient reports continues to feel improvements with gripping/grasping tasks, but continues to have moderate amounts of pain on a daily basis. 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 and left hand 38 lbs. Patient will benefit from continued from skilled OT for HEP progression, use of modalities, functional therapeutic exercise, progression of strengthening, and manual therapy to facilitate optimal functional use of the L hand . She states that after this month of therapy she may consider going back to the doctor to discuss surgery. Plan of Care Interventions Therapeutic Exercise,Check Out for Orthotic/Pr, Other,Ultrasound,Paraffin,Manual Therapy, Therapeutic Activities,Hot Pack/Cold Pack OT Services Indicated Yes These treatments will address the objective and functional deficits as defined above. The patient will be advanced safely and appropriately in order for the patient to progress towards his/her prior level of function. Additional exercises will be introduced and as well as a comprehensive home exercise program upon discharge, if needed, ?to ensure carryover of functional gains achieved in the clinic. This treatment plan has been reviewed and agreement upon by the patient.
--- NOTE | 2022-05-31 15:33 | OTOPPROG ---
Assessment and note entered by Og Pearce, OTR/Anibal, CHT Evaluation Information Assessment Status Progress Diagnosis Stenosing tenosynovitis left 3rd and 4th digits @ A1 karolyn Subjective Information Patient reports she has been experiencing less popping in the fingers. Patient reports she tries to complete the HEP at least once a day. Patient reports it is still easier to complete tasks such as gross gripping with less pain. She is able to participate in 30 minutes of hand exercises in the clinic with a reduction in pain following the session. Assessment OT Clinical Summary Becky is a 61 year-old, right handed female who is referred to outpatient OT with a diagnosis of stenosing tenosynovitis of the left hand, digits 3 and 4. She presents today for a re-evaluation. 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 She continues to have moderate amounts of pain on a daily basis. Patient will benefit from continued from skilled OT for HEP progression, use of modalities, functional therapeutic exercise, progression of strengthening , and manual therapy to facilitate optimal functional use of the L hand. Plan of Care Interventions Therapeutic Exercise,Check Out for Orthotic/Pr, Other,Ultrasound,Paraffin,Manual Therapy, Therapeutic Activities,Hot Pack/Cold Pack OT Services Indicated Yes Treatment Frequency and 2x/week for 2 additional weeks, re-eval for d/c on Duration 06/19/22 2 week gap due to patient's schedule being full These treatments will address the objective and functional deficits as defined above. The patient will be advanced safely and appropriately in order for the patient to progress towards his/her prior level of function. Additional exercises will be introduced and as well as a comprehensive home exercise program upon discharge, if needed, ?to ensure carryover of functional gains achieved in the clinic. This treatment plan has been reviewed and agreement upon by the patient.
--- NOTE | 2022-06-24 15:44 | OTOPDC ---
Assessment and note entered by MARIA D Ibanez/Anibal, CHT Evaluation Information Assessment Status Discharge Diagnosis Stenosing tenosynovitis left 3rd and 4th digits @ A1 karolyn Onset Unknown Subjective Information Patient reports she has been experiencing less popping in the fingers. She reports her hand feels better than it did a week ago. She reports she has been compliant with her exercises. She states she can use her left hand to hold the handle of her soda cup, hold a steering wheel, and opening doors. She states her fingers are no longer getting stuck in a flexed position. She is able to participate in 30 minutes of hand exercises in the clinic with a reduction in pain following the session. Today she is able to make a fist and able to touch her fingertips to her palm . 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 Reported Pain Level Pain Score Moderate Pain: Howard Odom Assessment OT Clinical Summary Becky is a 61 year-old, right handed female who is referred to outpatient OT with a diagnosis of stenosing tenosynovitis of the left hand, digits 3 and 4. 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 She is currently independent with her HEP for ROM and strength. Plan of Care OT Services Indicated No
== END 2022-06-25 08:48 | disposition home or self-care (01) ==
LOC: ANHOT 15:00
PROVIDERS: Visit Provider Plastic Surgery
DX: M65.842 Other synovitis and tenosynovitis, left hand (principal)
CPT/HCPCS: 97035; 97110; 97140

== ENCOUNTER 2022-07-26 14:15 | Outpatient (RCR) | payer OTHER, SELFPAY | END 2022-09-02 08:22 | disposition home or self-care (01) | LOC: ANHDMC 14:15 | DX: E11.9 Type 2 diabetes mellitus without complications (principal); Z71.89 Other specified counseling | CPT/HCPCS: G0108 ==

== ENCOUNTER 2022-08-06 11:00 | Outpatient (RCR) | payer OTHER, SELFPAY ==
--- NOTE | 2022-07-08 15:12 | PTOPEVAL1 ---
Assessment and note entered by Kellen Patton, PT Evaluation Information Assessment Status Evaluation Diagnosis L knee OA, chronic L hip pain, chronic back pain Onset May 2022 Subjective Information chronic back pain, gradual worse, no recent injury or trauma to back; have a curvature of back; had xrays at another facility; does not recall any PT for her back--has had for L hip; also fell recently and hurt her R knee--have to go and get it checked out; Reported Pain Level Pain Score Self Report Additional Pain Score Comments pain range of back pain 5-9/10; makes me want to scream; R and L lumbar- no radicular pain; increase pain with standing, activity, take a shower; reports tolerances: walk 10 min, sit 30 min, sleep awaken 8x/night due to pain- when change positions; decrease pain by taking ibuprofen, not know how to make it better; have not used heat/ice- instruct to use PRN; Assessment PT Clinical Summary Becky has multiple diagnosis'- L knee pain, L hip pain, low back pain, not radicular. She has recent increase in her weight and decreased activity level. She also reports new injury due to fall and R knee pain. With the evaluation, she uses the cane for ambulation, has poor standing posture, cannot lie flat and cannot tolerate standing, so hip and strength testing limited; she did not want to move her R knee due to pain and recent injury; she has limited trunk motion with guarding. Skilled PT services are indicted for modalities to decrease pain; therapeutic exercises to stretch and strengthen trunk and hips, with education for home exercises and posture correction. Plan of Care Interventions Electrical Stimulation,Gait Training,Manual Therapy,Neuro Re-education,Patient/Caregiver Education,Therapeutic Activities,Therapeutic Exercise,Ultrasound,Other Other Interventions taping PT Services Indicated Yes Treatment Frequency and 2x/wk for 4 weeks Duration These treatments will address the objective and functional deficits as defined above. The patient will be advanced safely and appropriately in order for the patient to progress towards his/her prior level of function. Additional exercises will be introduced and as well as a comprehensive home exercise program upon discharge, if needed, ?to ensure carryover of functional gains achieved in the clinic. This
--- NOTE | 2022-08-07 11:36 | PTOPDC ---
Assessment and note entered by Travis Torres, PT Evaluation Information Assessment Status Discharge Diagnosis Primary osteoarthritis of L knee, Chronic L hip pain, and low back pain Onset May 2022 Subjective Information Patient comes in to the clinic stating she has had a rough few days unable to sleep and that she has to stop doing early therapy sessions as she is not any good until at least 1 in the afternoon. Patient reports no changes in pain or functional mobility, just that she has to get ready for dancing season. Reports her exercise bike's seat is broken and unable to fix it. 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 She reports the bike is at least 4 years old and got it at a garage sale for 2 dollars. Patient also reports she tries to stay off the internet. Assessment PT Clinical Summary Becky is a 61 year old female coming into the clinic with L knee, L hip, and back pain. Patient was evaluated on 07/08/22 and attended 5 sessions. Patient was unable to progress in exercises actually regressing and unable to meet any goals written during initial evaluation. Physical therapist recommends to the patient that she sees a surgeon for possible injections or surgery on her joints as it appears she is having more issues and will probably continue to have more joint issues as the pain is causing the patient to be in misalignment with her posture. Patient responds that her surgeon has talked about needing a L knee replacement before and it is busted. Patient reports she does not want to do that, but do more physical therapy. Physical therapist states he does not feel okay giving more therapy as it does not appear to be making a difference, beside making her hurt worse. Yet if she see the surgeon and they want to do more therapy instead of less conservative measures she is welcome to come back. Patient is upset with that answer. Forestry Professor called in to talk to patient at patient's request. Patient becomes loud using profanity. Plan of Care PT Services Indicated No
== END 2022-08-07 14:29 | disposition home or self-care (01) ==
LOC: ANHPT 11:00
DX: M17.12 Unilateral primary osteoarthritis, left knee (principal); M54.50 Low back pain, unspecified; M25.552 Pain in left hip; G89.29 Other chronic pain
CPT/HCPCS: 97110; 97112; 97162; 97530